=== PATIENT | male | born 1995 | race Caucasian/White ===

== ENCOUNTER 2017-07-31 13:52 | Emergency (ER) | payer OTHER ==
[~2017-07-31] VITALS: Ht 180.3 cm; Wt 102.5 kg
--- NOTE | 2017-07-31 13:55 | PHYS DOC ---
Adult General Chief Complaint Chief Complaint: back pain HPI HPI Patient is a 22 year old male who presents with pain. He states he jumped off a tank about 4 feet in the air approximately 14 months ago and is having intermittent back pain since then. He started physical therapy 2 months ago and states just about daily as intermittent back pain. He takes [id number] medicines for his discomfort. Today he did a new technique/exercises with physical therapy and he was doing squats. He states after physical therapy started having excruciating back pain in the thoracic and lumbar area and felt tingling in his toes on his bilateral feet. He denies any muscle weakness. He states he can ambulate but he has a little bit of a limp this time. He denies any saddle anesthesia or urinary incontinence. He denies any history of surgery on his back. He states he's never had any type of imaging of his back as of yet. Review of Systems Review of Systems Constitutional: Denies fever or chills [] Eyes: Denies change in visual acuity, redness, or eye pain [] HENT: Denies nasal congestion or sore throat [] Respiratory: Denies cough or shortness of breath [] Cardiovascular: No additional information not addressed in HPI [] GI: Denies abdominal pain, nausea, vomiting, bloody stools or diarrhea [] : Denies dysuria or hematuria [] Musculoskeletal: Positive for back pain, Deniesjoint pain [] Integument: Denies rash or skin lesions [] Neurologic: Denies headache, focal weakness or sensory changes [] Endocrine: Denies polyuria or polydipsia [] Physical Exam Physical Exam Constitutional: Well developed, well nourished, no acute distress, non-toxic appearance. [] HENT: Normocephalic, atraumatic, bilateral external ears normal, oropharynx moist, no oral exudates, nose normal. [] Eyes: PERRLA, EOMI, conjunctiva normal, no discharge. [] Neck: Normal range of motion, no tenderness, supple, no stridor. [] Cardiovascular:Heart rate regular rhythm, no murmur [] Lungs & Thorax: Bilateral breath sounds clear to auscultation [] Abdomen: Bowel sounds normal, soft, no tenderness, no masses, no pulsatile masses. [] Skin: Warm, dry, no erythema, no rash. [] Back: Tender midline to the lumbar area no step-offs noted or appreciated, tender palpation bilateral paraspinal area to the thoracic and lumbar, no CVA tenderness. 5 out of 5 strength in hip flex and extension, knee flexor and extension, ankle flexion and extension. Sensation intact to light touch throughout all 5 toes on bilateral feet, dorsum of the feet and plantar aspect of the feet. Able to ambulate with a steady gait. Straight leg raise positive for pain down to bilateral knees. Extremities: No tenderness, no cyanosis, no clubbing, ROM intact, no edema. [] Neurologic: Alert and oriented X 3, normal motor function, normal sensory function, no focal deficits noted. [] Psychologic: Affect normal, judgement normal, mood normal. [] EKG EKG [] Radiology/Procedures Radiology/[place] [address] IMAGING REPORT Signed PATIENT: SAMUEL DAILEY ACCOUNT: [id number] : 1995 LOCATION: ER AGE: 22 SEX: M EXAM [id number] STATUS: REG ER ORD. PHYSICIAN: EUFEMIA BEST MD REASON: back pain PROCEDURE: LUMBAR SPINE 2-3V; THORACIC SPINE 3V Lumbar spine, 3 views, 07/31/2017: History: Back pain with numbness in toes The lumbar heights and intervertebral disc spaces are well-maintained. No fracture or dislocation is identified. There is a slight thoracolumbar scoliosis. The paraspinous soft tissues are unremarkable. IMPRESSION: No acute bony abnormality is detected. Thoracic spine, 3 views, 07/31/2017: The thoracic vertebral heights are well-maintained. No fracture or dislocation is evident. There is a mild upper thoracic scoliosis. The paraspinous soft tissues are unremarkable. IMPRESSION: No acute bony abnormality is detected. DICTATED AND SIGNED BY: CAMERON BLOUNT MD DATE: 07/31/17 1447 CC: EUFEMIA BEST MD; JANETH FERNÁNDEZ ~ Impressions: Back pain Course & Med Decision Making Course & Med Decision Making Pertinent Labs and Imaging studies reviewed. (See chart for details) X-rays of thoracic and lumbar spine did not show any acute abnormalities. He did initially states he had some tingling in his toes however this resolved now. He has no focal neurological deficits on exam. He is being discharged home with 3 days off and with ibuprofen and Flexeril. He is to follow-up with Dr. Wright. He is return back to ER if he develops any numbness or tingling in his extremities, weakness or other concerns. He is agreeable plan of being discharged in stable condition this time. Dragon Disclaimer Dragon Disclaimer This chart was dictated in whole or in part using Voice Recognition software in a busy, high-work load, and often noisy Emergency Department environment. It may contain unintended and wholly unrecognized errors or omissions. Departure Departure: Impression: Primary Impression: Back pain Disposition: HOME, SELF-CARE Condition: STABLE Referrals: JANETH FERNÁNDEZ (PCP) Patient Instructions: Back Pain, Adult Additional Instructions: You'll need to follow-up with Dr. Wright. Dr. Wright is a neurosurgeon. You can reach him at [phone]. His office located at: [address] [place] [address]. Please call his office and schedule follow- up appointment for the next 1-2 days. You will need take Motrin 600 mg every 8 hours for the next 4-5 days, you can also take 10 mg every 8 hours of Flexeril (cyclobenzaprine) as needed for muscle spasm/back pain. Flexeril can make you sleepy and impair your judgment. If flexeril makes you too sleepy, you can do one of 2 things. You can break the tablets in half to decrease the does to 5 mg, or you can just take one tablet before you go to bed. If you develop any numbness or tingling in your toes, weakness or troubles walking. Difficulty/weakness picking your feet off the ground or troubles bending at your ankles, knees or hips or you have any other kind weakness, please return back to emergency department immediately. Of course, if you have any other concerns, return back to emergency department for further evaluation. Scripts Cyclobenzaprine Hcl (CYCLOBENZAPRINE HCL) 10 Mg Tablet 1 TAB PO TID Y for MUSCLE PAIN, #90 TAB Prov: EUFEMIA BEST MD 07/31/17 Problem Qualifiers Primary Impression: Back pain Back pain location: low back pain Chronicity: unspecified Back pain laterality: bilateral Sciatica presence: unspecified whether sciatica present Qualified Codes: M54.5 - Low back pain EUFEMIA BEST MD Jul 31, 2017 13:55
[2017-07-31] MEDS ORDERED: CYCL-331 PO (14:20)
[2017-07-31] MEDS ORDERED: IBUPROFEN 600 MG TABLET. PO ONE (14:45)
[2017-07-31] MEDS ORDERED: ONDANSETRON ODT 4 MG TAB.RAPDIS PO ONE (14:45)
--- NOTE | 2017-07-31 14:46 | RAD ---
Lumbar spine, 3 views, 07/31/2017: History: Back pain with numbness in toes The lumbar heights and intervertebral disc spaces are well-maintained. No fracture or dislocation is identified. There is a slight thoracolumbar scoliosis. The paraspinous soft tissues are unremarkable. IMPRESSION: No acute bony abnormality is detected. Thoracic spine, 3 views, 07/31/2017: The thoracic vertebral heights are well-maintained. No fracture or dislocation is evident. There is a mild upper thoracic scoliosis. The paraspinous soft tissues are unremarkable.
[2017-07-31] MEDS ORDERED: ONDANSETRON 4MG ODT 4TABLET STARTPACK. PO ONE (14:49)
[2017-07-31 15:01] VITALS: BP 118/64
== END 2017-07-31 15:03 | disposition home or self-care (01) ==
LOC: ER 13:52
DX: M54.5 Low back pain (principal); M54.6 Pain in thoracic spine
CPT/HCPCS: 72072; 72100; 99284; Q0162